=== PATIENT | female | born 1975 | race Caucasian/White ===

== ENCOUNTER 2016-09-20 19:58 | Emergency (ER) | payer OTHER ==
[2016-09-20 20:04] VITALS: BP 120/77
[2016-09-20] MEDS ORDERED: diphenhydrAMINE 50 MG/ML SDV IVPUSH ONE (20:17)
[2016-09-20] MEDS ORDERED: Ketorolac 30 MG/ML SDV IVPUSH ONE (20:17)
[2016-09-20] MEDS ORDERED: Lactated Ringers 1,000 ML IV ONE (20:17)
[2016-09-20] MEDS ORDERED: Promethazine 25 MG in Sodium Chloride 0.9% 50 ML IV ONE (20:17)
[2016-09-20] MEDS ORDERED: Sodium Chloride 0.9% 10 ML Syringe FLUSH PRN (20:17)
--- NOTE | 2016-09-20 20:20 | EDM.PDOC ---
ED HPI GENERAL MEDICAL PROBLEM - General Chief Complaint: Headache Stated Complaint: [facility] Time Seen by Provider: 09/20/16 20:10 Source of Information: Reports: Patient History Limitations: Reports: No Limitations - History of Present Illness INITIAL COMMENTS - FREE TEXT/NARRATIVE: 41-year-old female presents for evaluation treatment of a migraine headache. Patient arrives via [facility]. Patient reports that she woke around 5 AM this morning. She states that her alarm went off she awoke and realized immediately she had a headache. The headache dis not wake her from sleep. She states it is a typical migraine headache for her. She reports she used to have more frequent migraines but since having a hysterectomy her migraines have significantly improved. She took 3 rizatriptins, 2 Zofran and an Excedrin Migraine today without any relief. Patient reports symptoms of migraine, nausea , vomiting, photophobia and phonophobia. She reports that migraine is located across the front of her head and is behind her eyes. She denies any fevers, seizures, change in gait or speech. She was given fluids, Zofran and 100 g of fentanyl prior to arrival in the ER. Patient is unable to identify any trigger. She reports that she returned home from [place] earlier this week. She questions if it was the travel or the foods that she ate that triggered the migraine. She reports that she knows that peppers and Wine are triggers for her. Patient states that she has been extensively worked up for these migraines. She has had CAT scans and MRIs which of all return negative. Onset: Today Quality: Reports: Same as Previous Episode Treatments MEDICAL CARE EVALUATION SPECIALIST: Reports: IV/IO, Other (see below) Other Treatments MEDICAL CARE EVALUATION SPECIALIST: Zofran and Fentanyl Headache Pain Score (Numeric/FACES): 7 - Related Data Allergies Allergy/AdvReac Type Severity Reaction Status Date / Time acetaminophen [From Vicodin] Allergy Itching Verified 09/20/16 20:00 hydrocodone bitartrate Allergy Itching Verified 09/20/16 20:00 [From Vicodin] hydromorphone HCl Allergy Itching Verified 09/20/16 20:00 [From Dilaudid] Home Meds: Home Meds Fluticasone Propionate [Flonase] 1 inh INH DAILY 04/18/14 [History] Omeprazole [Prilosec] 20 mg PO DAILY 04/18/14 [History] Rizatriptan [Maxalt] 20 mg PO ASDIRECTED PRN 04/18/14 [History] Cyclobenzaprine [Flexeril] 10 mg PO ASDIRECTED #15 tablet 02/06/15 [Rx] Naproxen [Naprosyn] 500 mg PO Q12HR #20 tablet 02/06/15 [Rx] Past Medical History HEENT History: Reports: Impaired Vision Neurological History: Reports: Migraines - Past Surgical History HEENT Surgical History: Reports: Myringotomy w Tube(s), Tonsillectomy GI Surgical History: Reports: Appendectomy, Cholecystectomy Female Surgical History: Reports: Hysterectomy Musculoskeletal Surgical History: Reports: Other (See Below) Social & Family History - Tobacco Use Smoking Status *Q: Current Every Day Smoker Years of Tobacco use: 22 Packs/Tins Daily: 1.5 - Recreational Drug Use Recreational Drug Use: No ED ROS GENERAL - Review of Systems Review Of Systems: See Below Constitutional: Denies: Fever HEENT: Reports: Other (reports photophobia and phonophobia). Denies: Vision Change GI/Abdominal: Reports: Nausea, Vomiting Neurological: Reports: Headache. Denies: Numbness, Seizure, Syncope, Tingling, Trouble Speaking, Difficulty Walking, Change in Speech, Gait Disturbance - Physical Exam Exam: See Below Exam Limited By: No Limitations General Appearance: Alert, WD/WN, Mild Distress, Obese Eye Exam: Bilateral Eye: PERRL Ears: Normal External Exam, Normal Canal, Hearing Grossly Normal, Normal TMs Nose: Normal Inspection Throat/Mouth: Normal Lips, Normal Voice, No Airway Compromise Head Exam: Atraumatic, Normocephalic Respiratory/Chest: No Respiratory Distress, Lungs Clear, Normal Breath Sounds Cardiovascular: Normal Peripheral Pulses, Regular Rate, Rhythm, No Murmur Neuro Exam (Abbreviated): Alert, Oriented, Normal Cognition Psychiatric: Normal Affect, Normal Mood Skin Exam: Warm, Dry, Normal Color Course - Vital Signs Last Recorded V/S: Last Vital Signs Temp 35.8 C 09/20/16 20:00 Pulse 75 09/20/16 20:00 Resp 17 09/20/16 20:00 BP 120/77 09/20/16 20:00 Pulse Ox 98 09/20/16 20:00 - Orders/Labs/Meds Orders: Active Orders 24 hr Category Date Time Status Peripheral IV Care [RC] . DIRECTED Care 09/20/16 20:17 Active Peripheral IV Insertion Adult [OM.PC] Routine Oth 09/20/16 20:17 Ordered Meds: Medications Discontinued Medications Generic Name Dose Route Start Last Admin Trade Name Erin PRN Reason Stop Dose Admin Diphenhydramine HCl 50 mg 09/20/16 20:17 09/20/16 20:39 Benadryl IVPUSH 09/20/16 20:18 50 mg ONETIME ONE Administration Haloperidol Lactate 5 mg 09/20/16 21:35 09/20/16 21:42 Haldol IVPUSH 09/20/16 21:36 5 mg ONETIME ONE Administration Lactated Ringer's 1,000 mls @ 999 mls/hr 09/20/16 20:17 09/20/16 20:37 Ringers, Lactated IV 09/20/16 21:17 999 mls/hr .BOLUS ONE Administration Promethazine HCl 25 mg/ Sodium 51 mls @ 100 mls/hr 09/20/16 20:17 09/20/16 20 :44 Chloride IV 09/20/16 20:47 100 mls/hr ONETIME ONE Administration Ketorolac Tromethamine 30 mg 09/20/16 20:17 09/20/16 20:40 Toradol IVPUSH 09/20/16 20:18 30 mg ONETIME ONE Administration Sodium Chloride 10 ml 09/20/16 20:17 09/20/16 20:45 Saline Flush FLUSH 10 ml ASDIRECTED PRN Administration Keep Vein Open - Re-Assessments/Exams Free Text/Narrative Re-Assessment/Exam: 09/20/16 20:40 Discussed imaging and labs. Given that she has a history of migraine headaches and this feels similar to that previous headaches, I do not feel any imaging is needed at this time. Patient agrees with this. I offerred any lab testing, she declines lab testing tonight. We will follow the migraine headache protocol. Will start with some IV Benadryl, Toradol and Phenergan. 09/20/16 21:43 Patient states that her headache is now a 4 or 5 out of 10. This is improved from a 7 out of 10 upon arrival to the ER. Will try some haldol for additional migraine relief. So far received Toradol, Phenergan, Benadryl and fluids. 09/20/16 22:00 The patient reports that she feels greatly improved at this time. She would like to go home. We will discharge her home. Discharge instructions as documented. Departure - Departure Time of Disposition: 22:00 Disposition: Home, Self-Care 01 Condition: Good Clinical Impression: Migraine - Discharge Information Instructions: Migraine Headache, [id number], Migraine Headache Referrals: Ashley Merritt LIFE ENRICHMENT ASSISTANT [Primary Care Provider] - Forms: ED Department Discharge Additional Instructions: Go home and rest in a dark quiet room. Make sure you drink plenty of fluids. Continue with your current plan of care. Follow-up with your primary care provider as needed. Please return to the ER if your symptoms change or worsen. - My Orders Last 24 Hours: My Active Orders 09/20/16 20:17 Peripheral IV Care [RC] . DIRECTED Peripheral IV Insertion Adult [OM.PC] Routine - Assessment/Plan Last 24 Hours: My Active Orders 09/20/16 20:17 Peripheral IV Care [RC] . DIRECTED Peripheral IV Insertion Adult [OM.PC] Routine
[2016-09-20] MEDS ORDERED: Haloperidol Lactate 5 MG/ML SDV IVPUSH ONE (21:35)
== END 2016-09-20 22:04 | disposition home or self-care (01) ==
LOC: JD.ED 19:58
DX: G43.909 Migraine, unspecified, not intractable, without status migrainosus (principal); F17.210 Nicotine dependence, cigarettes, uncomplicated; Z90.49 Acquired absence of other specified parts of digestive tract; Z96.22 Myringotomy tube(s) status; Z90.710 Acquired absence of both cervix and uterus; Z98.890 Other specified postprocedural states; Z79.899 Other long term (current) drug therapy; Z88.5 Allergy status to narcotic agent; Z88.6 Allergy status to analgesic agent
CPT/HCPCS: 96361; 96365; 96375; 99284; J1200; J1630; J1885; J2550; J7050; J7120

== ENCOUNTER 2018-04-18 07:27 | Emergency (ER) | payer OTHER ==
[2018-04-18 07:42] VITALS: BP 125/93
[2018-04-18] MEDS ORDERED: diphenhydrAMINE 50 MG/ML SDV IVPUSH ONE (07:46)
[2018-04-18] MEDS ORDERED: Metoclopramide 10 MG/2 ML SDV IVPUSH ONE (07:46)
[2018-04-18] MEDS ORDERED: fentaNYL 100 MCG/2 ML SDV IVPUSH ONE ×2 (07:47→08:32)
--- NOTE | 2018-04-18 07:51 | EDM.PDOC ---
ED HPI GENERAL MEDICAL PROBLEM - General Chief Complaint: Headache Stated Complaint: HEADACHE Time Seen by Provider: 04/18/18 07:46 Source of Information: Reports: Patient History Limitations: Reports: No Limitations - History of Present Illness INITIAL COMMENTS - FREE TEXT/NARRATIVE: 42-year-old female presents to the ED with her due to his severe migraine headache involving the left hemicranium. Patient states she felt mild headache before going to bed last night at 8:00. Awoke around 0100 hrs. this morning with severe throbbing pounding headache on the left side particularly behind her eye and left temporal scalp. Associated with nausea and vomiting. Attempts take Toradol orally but vomited it up. She is also on the new injection once a months to try and prevent migraines from occurring. She states they usually of thick, are much milder than normal. Current headache is rated as a 9 out of 10. Photophobic. is been bilious without any blood. Headache is no different in which she's experienced in the past. Onset: Today Onset Date: 04/18/18 Onset Time: 01:00 Duration: Hour(s): (Woke with severe headache at 0100 hrs. this morning) Location: Reports: Head Quality: Reports: Ache (Left hemicranial headache particularly retro-orbital left temporal scalp.), Pressure, Throbbing, Other (Pounding) Severity: Severe (9 and 10) Improves with: Reports: None, Other (Lying still in a dark room does help somewhat.) Worsens with: Reports: Other, Movement Context: Reports: Other (Spontaneous occurrence.). Denies: Activity, Exercise, Lifting (Very photophobic.), Sick Contact, Trauma Associated Symptoms: Reports: Headaches, Loss of Appetite, Malaise, Nausea/ Vomiting (Emesis is been mostly bilious.). Denies: Confusion, Chest Pain, Cough , cough w sputum, Diaphoresis, Fever/Chills, Rash, Seizure, Shortness of Breath , Syncope Treatments TIPPING MACHINE OPERATOR AUTOMATIC: Reports: Other (see below) Headache Pain Score (Numeric/FACES): 10 - Related Data Allergies Allergy/AdvReac Type Severity Reaction Status Date / Time acetaminophen [From Vicodin] Allergy Itching Verified 04/18/18 07:42 hydrocodone bitartrate Allergy Itching Verified 04/18/18 07:42 [From Vicodin] hydromorphone HCl Allergy Itching Verified 04/18/18 07:42 [From Dilaudid] Home Meds: Home Meds Cyclobenzaprine [Flexeril] 10 mg PO ASDIRECTED #15 tablet 02/06/15 [Rx] Ketorolac [Toradol] 10 mg PO TID PRN 04/18/18 [History] Ondansetron [Zofran ODT] 4 mg PO Q6H PRN 04/18/18 [History] Past Medical History HEENT History: Reports: Impaired Vision Neurological History: Reports: Migraines - Past Surgical History HEENT Surgical History: Reports: Myringotomy w Tube(s), Tonsillectomy GI Surgical History: Reports: Appendectomy, Cholecystectomy Female Surgical History: Reports: Hysterectomy Musculoskeletal Surgical History: Reports: Other (See Below) Social & Family History - Living Situation & Occupation Living situation: Reports: Occupation: Employed ED ROS GENERAL - Review of Systems Review Of Systems: See Below Constitutional: Reports: Malaise (From not sleeping all night.), Weakness, Fatigue HEENT: Reports: No Symptoms Respiratory: Reports: No Symptoms Cardiovascular: Reports: No Symptoms Endocrine: Reports: No Symptoms GI/Abdominal: Reports: Nausea, Vomiting (Due to the intensity of a headache) Musculoskeletal: Reports: No Symptoms Skin: Reports: No Symptoms Neurological: Reports: No Symptoms Psychiatric: Reports: No Symptoms Hematologic/Lymphatic: Reports: No Symptoms Immunologic: Reports: No Symptoms - Physical Exam Exam: See Below Exam Limited By: No Limitations General Appearance: Alert, WD/WN, Mild Distress, Other (Examination a darkened room.) Eye Exam: Bilateral Eye: Normal Inspection, PERRL Throat/Mouth: Normal Inspection, Normal Lips, Normal Teeth, Normal Oropharynx Head Exam: Atraumatic, Normocephalic Neck: Normal Inspection, Supple, Non-Tender, Full Range of Motion. No: Lymphadenopathy (L), Lymphadenopathy (R) Respiratory/Chest: No Respiratory Distress, Lungs Clear, Normal Breath Sounds Neuro Exam (Abbreviated): Alert, Oriented, CN II-XII Intact, Normal Cognition, No Motor/Sensory Deficits Extremities: Normal Inspection, Normal Range of Motion, Non-Tender, No Pedal Edema Psychiatric: Normal Affect Skin Exam: Warm, Dry, Intact, Normal Color, No Rash Course - Vital Signs Last Recorded V/S: Last Vital Signs Temp 36.8 C 04/18/18 07:35 Pulse 96 04/18/18 07:35 Resp 18 04/18/18 07:35 BP 125/93 H 04/18/18 07:35 Pulse Ox 96 04/18/18 07:35 - Orders/Labs/Meds Orders: Active Orders 24 hr Category Date Time Status Dextrose 5%-0.9% NaCl [Dextrose 5%-Normal Saline] 1,000 Med 04/18/18 08:00 Active ml IV ASDIRECTED Ketorolac [Toradol] Med 04/18/18 08:00 Active 30 mg IVPUSH ONETIME fentaNYL [Sublimaze] Med 04/18/18 08:32 Once 50 mcg IVPUSH ONETIME ONE Medication Orders Dextrose/Sodium Chloride (Dextrose 5%-Normal Saline) 1,000 mls @ 999 mls/hr IV ASDIRECTED RENITA Last Admin: 04/18/18 07:59 Dose: 999 mls/hr Ketorolac Tromethamine (Toradol) 30 mg IVPUSH ONETIME RENITA Last Admin: 04/18/18 08:01 Dose: 30 mg Meds: Medications Generic Name Dose Route Start Last Admin Trade Name Freq PRN Reason Stop Dose Admin Dextrose/Sodium Chloride 1,000 mls @ 999 mls/hr 04/18/18 08:00 04/18/18 07:59 Dextrose 5%-Normal Saline IV 999 mls/hr ASDIRECTED RENITA Administration Ketorolac Tromethamine 30 mg 04/18/18 08:00 04/18/18 08:01 Toradol IVPUSH 30 mg ONETIME RENITA Administration Discontinued Medications Generic Name Dose Route Start Last Admin Trade Name Freq PRN Reason Stop Dose Admin Diphenhydramine HCl 25 mg 04/18/18 07:46 04/18/18 07:57 Benadryl IVPUSH 04/18/18 07:47 25 mg ONETIME ONE Administration Fentanyl 50 mcg 04/18/18 07:47 04/18/18 07:57 Sublimaze IVPUSH 04/18/18 07:48 50 mcg ONETIME ONE Administration Metoclopramide HCl 10 mg 04/18/18 07:46 04/18/18 07:57 Reglan IVPUSH 04/18/18 07:47 10 mg ONETIME ONE Administration - Radiology Interpretation Free Text/Narrative:: 42-year-old female presents the ED with an acute left hemicranial headache that started 0100 hrs. this morning. Associated with nausea and vomiting. Patient does suffer from frequent migraine headaches. Hasn't had a real bad one for about a year. Neuro exam is otherwise normal. Plan IV Toradol 30 mg with Benadryl 25 mg and Reglan 10 mg. Fentanyl 50 g IV. She can remember she is allergic to Demerol or to Dilaudid one of them caused significant generalized pruritus. - Re-Assessments/Exams Free Text/Narrative Re-Assessment/Exam: 04/18/18 08:35 patient reports headache is about 60% better. Will repeat fentanyl 50 g IV since only last for about 45 minutes and then she will be discharged to home in the care of her . They have traveled back to [place] and she will try and go to bed for a few hours. Departure - Departure Time of Disposition: 08:35 Disposition: Home, Self-Care 01 Condition: Fair Clinical Impression: Migraine - Discharge Information *PRESCRIPTION DRUG MONITORING PROGRAM REVIEWED*: Not Applicable *COPY OF PRESCRIPTION DRUG MONITORING REPORT IN PATIENT HERLINDA: Not Applicable Referrals: Ashley Merritt, MILLING MACHINE TENDER [Primary Care Provider] - Forms: ED Department Discharge Additional Instructions: Evaluation the emergency room this morning in regards to left hemicranial migraine headache associated with nausea and vomiting. Treatment in the ED was IV fluids. Toradol 30 mg IV with Benadryl 25 mg IV. Fentanyl 50 g IV 2 doses on 10 mg IV. Suggest home to sleep for the next 3-4 hours to break the headache cycle. - My Orders Last 24 Hours: My Active Orders 04/18/18 08:00 Dextrose 5%-0.9% NaCl [Dextrose 5%-Normal Saline] 1,000 ml IV ASDIRECTED Ketorolac [Toradol] 30 mg IVPUSH ONETIME 04/18/18 08:32 fentaNYL [Sublimaze] 50 mcg IVPUSH ONETIME ONE - Assessment/Plan Last 24 Hours: My Active Orders 04/18/18 08:00 Dextrose 5%-0.9% NaCl [Dextrose 5%-Normal Saline] 1,000 ml IV ASDIRECTED Ketorolac [Toradol] 30 mg IVPUSH ONETIME 04/18/18 08:32 fentaNYL [Sublimaze] 50 mcg IVPUSH ONETIME ONE
[2018-04-18] MEDS ORDERED: Dextrose 5%-0.9% NaCl 1,000 ML IV SCH (08:00)
[2018-04-18] MEDS ORDERED: Ketorolac 30 MG/ML SDV IVPUSH SCH (08:00)
== END 2018-04-18 09:17 | disposition home or self-care (01) ==
LOC: JD.ED 07:27
DX: G43.909 Migraine, unspecified, not intractable, without status migrainosus (principal); Z88.6 Allergy status to analgesic agent; Z88.8 Allergy status to other drugs, medicaments and biological substances
CPT/HCPCS: 96361; 96374; 96375; 96376; 99283; J1200; J1885; J2765; J3010; J7042; 99284

== ENCOUNTER 2021-07-15 07:20 | Emergency (ER) | payer BC ==
[2021-07-15] MEDS ORDERED: Sodium Chloride 0.9% 10 ML Syringe FLUSH PRN (07:43)
[2021-07-15] MEDS ORDERED: Ondansetron 4 MG/2 ML SDV IVPUSH ONE (07:43)
[2021-07-15] MEDS ORDERED: Morphine 4 MG/ML VIAL IVPUSH ONE (07:45)
[2021-07-15] MEDS ORDERED: Sodium Chloride 0.9% 1,000 ML IV SCH (07:45)
[2021-07-15] MEDS ORDERED: Ketorolac 30 MG/ML SDV IVPUSH ONE (07:45)
[2021-07-15] MEDS ORDERED: Morphine 4 MG/ML Syringe IVPUSH ONE ×2 (08:00→08:32)
[2021-07-15 11:08] VITALS: BP 95/72; PULSE 70
== END 2021-07-15 10:02 | disposition home or self-care (01) ==
LOC: JD.ED 07:20
DX: R10.9 Unspecified abdominal pain (principal); F17.210 Nicotine dependence, cigarettes, uncomplicated; Z79.899 Other long term (current) drug therapy; Z90.49 Acquired absence of other specified parts of digestive tract; Z90.710 Acquired absence of both cervix and uterus; Z88.6 Allergy status to analgesic agent; Z88.1 Allergy status to other antibiotic agents; Z88.0 Allergy status to penicillin; Z88.5 Allergy status to narcotic agent
CPT/HCPCS: 36415; 74176; 80053; 81001; 83690; 85025; 96374; 96375; 96376; 99284; J1885; J2270; J2405; J3490; J7030